=== PATIENT | female | born 1955 | race Caucasian/White ===

== ENCOUNTER 2017-07-05 15:07 | Emergency (ER) | payer OTHER ==
[~2017-07-05] VITALS: Ht 162.6 cm; Wt 62.1 kg
[2017-07-05 22:15] VITALS: BP 156/77
== END 2017-07-05 22:44 | disposition home or self-care (01) ==
LOC: ER 15:11
DX: R51 Headache (principal); E03.9 Hypothyroidism, unspecified; Z88.2 Allergy status to sulfonamides; I10 Essential (primary) hypertension
CPT/HCPCS: 70450